=== PATIENT | male | born 1980 | race Caucasian/White ===

== ENCOUNTER 2019-01-09 04:14 | Observation (INO) ==
[2019-01-09] MEDS ORDERED: Naloxone 0.4 MG/ML INJ IVP PRN (07:18)
--- NOTE | 2019-01-09 07:36 | Internal Med History&Physical ---
Date of Encounter: 01/09/19 Time of Encounter: 07:00 Internal Medicine - H&P: HPI Chief complaint: rectal bleeding Admitted From: Hospital to Hospital Transfer Plans for Post Hospital Care: Home History of present illness: Mr. Pham is a 38 year old male with no significant past medical history presented from [facility] with symptomatic anemia. As per patient he has been having bright red blood per rectum for the past 3 weeks. Bright red blood is almost daily when he has a bowel movement and fills the entire toilet bowl. He reports some clots, has brown stools, denies black stools. He did have a colonoscopy about a month and a half ago in [facility] and reports that there was no abnormalities found. He had discussed his symptoms of having bright red blood per rectum with a physician and he was told that it was due to his hemorrhoids. Gradually over the past 3 weeks has been becoming more weak, d evelops dizziness on standing from a sitting or laying position. Has blackening of his vision when bending forward which she has never had before. He also has been becoming increasingly more tired and fatigued as compared to before while completing tasks. He denies fever, chills, hematemesis, hemoptysis, chest pain, palpitations, nausea, vomiting or diarrhea. He denies family history of GI cancers. He does take 3x 800 mg pills of ibuprofen daily. He is a current everyday smoker, denies excessive alcohol or drug use. Past Med Surg Social Fam HX - Past Medical History Medical history: non-contributory, asthma, hypertension Additional medical history: Herniated disc in neck Psychiatric history: anxiety, PTSD - Past Surgical History Surgical History: vasectomy Additional surgical history: Skin graph on left eardrum - Social History Smoking Status: Current every day smoker Packs per day: 1 Smokeless Tobacco Status: No Alcohol use: none Drug use: none - Family History Mother Living Status: Hx Family Cardiac Disorders: Yes Father Living Status: Still Living Hx Family Cardiac Disorders: Yes Internal Medicine - H&P: Meds Daypro 02/04/18 [History] Flexeril 02/04/18 [History] Sulfamethoxazole/Trimeth DS [Bactrim DS] 1 each PO BID 7 Days #14 tablet 02/04/18 [Rx] Zoloft 02/04/18 [History] Allergy/AdvReac Type Severity Reaction Status Date / Time Varenicline [From Chantix] Allergy Hives Verified 02/04/18 11:47 All Systems PM: A 10-system review of systems was performed and is negative for pertinent findings except as documented above in the HPI. - Constitutional Vitals: Temp Pulse Resp BP Pulse Ox 98.1 F 81 15 121/78 100 01/09/19 07:22 01/09/19 07:22 01/09/19 07:22 01/09/19 07:22 01/09/19 07:22 Exam: General: Patient is alert, oriented, no acute distress, obese Head: atraumatic, normocephalic, Eye: normal appearance, PERRL, pale conjunctiva ENT: mucous membranes moist, normal external ear exam Neck: normal inspection, trachea midline, full ROM Chest: normal inspection, symmetric chest rise Respiratory: Good respiratory effort. Bilateral breath sounds are clear without wheezing, crackles, or rhonchi. Cardiovascular: Regular rate and rhythm. s1 and s2 No clicks, rubs, gallops, or murmors. Abdomen: Bowel sounds present normoactive x-4 quadrants. Abdomen is soft, nondistended. no Epigastric tenderness. No guarding or rebound. No organomegaly noted, obese, mild tenderness of the right flank, Corbin sign is negative. musculoskeletal: Spontaneously moving all extremities. no edema, no calf te nderness Skin: warm, dry, intact. Neuro: Alert and oriented x4. No focal deficit Psych: Patient's affect is normal Internal Med - H&P Results - Labs CBC & Chem 7: 01/09/19 10:46 01/09/19 07:31 - EKG Data -: EKG Interpreted by Myself EKG shows normal: sinus rhythm (NSR, [id number]) - EKG Data Prior EKG available for review: no - Assessment and Plan (1) Acute blood loss anemia Current Visit: Yes Status: Acute Assessment and plan: Acute severe, symptomatic blood loss anemia secondary to GI bleed (upper vs lower) Has history of NSAID use (gastric ulcer) , does complain of bright red blood per rectum (hemorrhoidsvs angiodysplasia rule out other etiologies) CBC stat and follow every 8 hours Type and screen stat Orthostatics We will transfuse 1 unit of PRBC Guaiac test Monitor INR PPI therapy IVF Avoid non-steroidal anti-inflammatory drugs, anti-platelets, anticoagulants GI consult for EGD and colonoscopy NPO (2) BRBPR (bright red blood per rectum) Current Visit: Yes Status: Acute Assessment and plan: Questionable upper GI bleed with fast transit versus lower GI bleed versus hemorrhoids Management as above (3) Obesity (BMI 35.0-39.9 without comorbidity) Current Visit: Yes Status: Acute Assessment and plan: was counseled on nutrition (4) Smoker Current Visit: Yes Status: Acute Assessment and plan: was counseled, nicotine patch provided (5) DVT prophylaxis Current Visit: Yes Status: Acute Assessment and plan: scds - Time Spent With Patient Total time spent is greater than 50% in coordination of care (as documented) at patient's floor/unit and/or counseling patient:
[2019-01-09] MEDS ORDERED: 0.9 % Sodium Chloride 1,000 ML ONE (07:45)
[2019-01-09 07:49] LABS: Basophils % 0.2 %; Eosinophils # 0.1 K/mcL (0.0-0.6); Eosinophils % 2.7 %; Hematocrit 21.9 % (37.5-50.1); Hemoglobin 7.1 g/dL (12.9-16.9); Immature Granulocytes % 0.4 % (0-4); Lymphocytes # 1.7 K/mcL (0.6-4.6); Lymphocytes % 32.8 %; Mean Corpuscular HGB Conc 32.4 g/dL (31.6-35.5); Mean Corpuscular Volume 92.4 fL (83.0-100.0); Mean Platelet Volume 9.7 fL (9.4-12.4); Monocytes # 0.4 K/mcL (0.0-1.3); Monocytes % 7.6 %; Neutrophils # 2.9 K/mcL (1.6-8.9); Platelet Count 262 K/mcL (140-400); Red Blood Count 2.37 M/mcL (4.19-5.50); Red Cell Distribution Width 13.1 % (11.5-14.5); Segmented Neutrophils % 56.3 %
[2019-01-09] MEDS: 0.9 % Sodium Chloride 1,000 ML IVC SCH ×2 (08:00→20:55)
[2019-01-09 08:04] LABS: INR 0.9; Prothrombin Time 10.3 Seconds (9.4-12.1)
[2019-01-09 08:06] LABS: Activated Partial Thrombo Time 30.1 Seconds (26.0-36.0)
[2019-01-09 08:12] LABS: % Iron Saturation 3 % (20-55); Alanine Aminotransferase 13 Units/L (7-52); Albumin 3.6 g/dL (3.5-5.7); Albumin/Globulin Ratio 2.1 (1.1-2.2); Alkaline Phosphatase 46 Units/L (34-104); Aspartate Amino Transferase 11 Units/L (13-39); BUN/Creatinine Ratio 12 (6-26); Bilirubin,Total 0.3 mg/dL (0.3-1.0); Blood Urea Nitrogen 10 mg/dL (6-20); Calcium 8.7 mg/dL (8.6-10.3); Carbon Dioxide 28 mEq/L (23-29); Chloride 106 mEq/L (98-107); Globulin 1.7 g/dL (2.4-3.5); Glucose 101 mg/dL (70-105); Iron 11 mcg/dL (65-175); Magnesium 1.9 mg/dL (1.6-2.6); Osmolality,Calculated 287 (280-300); Phosphorous 4.2 mg/dL (2.7-4.5); Potassium 4.2 mEq/L (3.5-5.1); Sodium 139 mEq/L (136-145); Total Protein 5.3 g/dL (6.4-8.9); Transferrin 264 mg/dL (203-362); eGFR For Non-African Americans > 60 (> 60)
[2019-01-09 08:35] LABS: Folate 12.6 ng/mL (3.0-16.0)
[2019-01-09] MEDS: Nicotine 21 MG PATCH.TD24 TD SCH (10:19)
[2019-01-09] MEDS: Pantoprazole 40 MG in 0.9 % Sodium Chloride Mini Bag 100 ML IVC SCH ×3 (10:19→20:55)
[2019-01-09 11:16] LABS: Basophils % 0.4 %; Eosinophils # 0.1 K/mcL (0.0-0.6); Eosinophils % 2.4 %; Hematocrit 21.7 % (37.5-50.1); Immature Granulocytes % 0.4 % (0-4); Lymphocytes # 1.3 K/mcL (0.6-4.6); Lymphocytes % 25.5 %; Mean Corpuscular HGB Conc 32.3 g/dL (31.6-35.5); Mean Corpuscular Hemoglobin 29.5 pg (28.0-33.3); Mean Corpuscular Volume 91.6 fL (83.0-100.0); Mean Platelet Volume 9.8 fL (9.4-12.4); Monocytes # 0.4 K/mcL (0.0-1.3); Neutrophils # 3.2 K/mcL (1.6-8.9); Platelet Count 249 K/mcL (140-400); Red Blood Count 2.37 M/mcL (4.19-5.50); Red Cell Distribution Width 13.2 % (11.5-14.5); Segmented Neutrophils % 64.3 %
--- NOTE | 2019-01-09 11:37 | Gastroenterology Consult Note ---
<Aliyah Bryson - Last Filed: 01/09/19 11:30> Date of Encounter: 01/09/19 Time of Encounter: 09:45 - Assessment and plan (1) Acute blood loss anemia Current Visit: Yes Status: Acute Assessment and plan: Pt complains of BRBPR, RUQ pain, GERD, and dizziness. Will check EGD and double tomorrow to rule out esophagitis, PUD, gastritis, esophagitis, AVMs, bleeding polyps or hemorrhoids. Monitor H&H, transfuse as needed. (2) GERD (gastroesophageal reflux disease) Current Visit: Yes Status: Acute Qualifiers: Esophagitis presence: without esophagitis Qualified Code(s): K21.9 - Gastro-esophageal reflux disease without esophagitis (3) RUQ abdominal pain Current Visit: Yes Status: Acute (4) BRBPR (bright red blood per rectum) Current Visit: Yes Status: Acute - Time Spent With Patient Total time spent is greater than 50% in coordination of care (as documented) at patient's floor/unit and/or counseling patient: GI History of Present Illness - Data of Consult Patient: new to practice Consult date: 01/09/19 Requesting Physician: Oren Laureano MD - Consult Narrative Reason for consult: anemia/BRBPR History of present illness: Mr. Pham is a 38 year old male with no significant past medical history. He presented from with symptomatic anemia. He has been having bright red blood per rectum for several months but states has been much worse the past 3 weeks. Bright red blood is almost daily when he has a bowel movement and fills the entire toilet bowl. He reports some clots, has brown stools, denies black stools. He reports he would also have leakage of blood that would stain his clothes. He did have a colonoscopy 1-2 months ago at [facility] which showed a small polyp and internal hemorrhoids. Gradually over the past 3 weeks has been becoming more weak, develops dizziness on standing from a sitting or laying position. Has blackening of his vision when bending forward which she has never had before. He also has been becoming increasingly more tired and fatigued as compared to before while completing tasks. He denies fever, chills, hematemesis, hemoptysis, chest pain, palpitations, nausea, vomiting or diarrhea. He denies family history of GI cancers. He does take 3x 800 mg pills of ib uprofen daily. He complains of pain in his RUQ and "constant heartburn". He is a current everyday smoker, denies excessive alcohol or drug use. Past Med Surg Social Fam HX - Past Medical History Medical history: non-contributory, asthma, hypertension Additional medical history: Herniated disc in neck Psychiatric history: anxiety, PTSD - Past Surgical History Surgical History: vasectomy Additional surgical history: Skin graph on left eardrum - Social History Smoking Status: Current every day smoker Packs per day: 1 Smokeless Tobacco Status: No Alcohol use: none Drug use: none - Family History Mother Living Status: Hx Family Cardiac Disorders: Yes Father Living Status: Still Living Hx Family Cardiac Disorders: Yes Review of Systems: GI: as per [facility]: denies fever, has some chills EYES: denies yellow discoloration ENT: denies pain with swallowing or difficulty swallowing CARDIO: denies chest pain, palpitations RESP: Shortness of breath with exertion : denies change in color of urine NEURO: weakness HEME: Denies any bruising MS: back pain. DERM: denies rash or itching PSYCH: Denies history of anxiety or depression - Constitutional Vitals: Temp Pulse Resp BP Pulse Ox 97.8 F 82 15 125/74 98 01/09/19 10:02 01/09/19 10:02 01/09/19 10:02 01/09/19 10:02 01/09/19 10:02 Exam: CONSTITUTIONAL:alert, no acute distress.HEAD:normocephalic.EYES:no jaundice.NECK:no obvious swelling.HEART:regular rate and rhythm, no murmurs.LUNGS:bilateral good air entry.ABDOMEN:non distended, soft, tender RUQ, no masses palpable, no organomegaly.RECTAL EXAM:Deferred.EXTREMITIES:no clubbing, cyanosis or edema.SKIN: pallor noted,no stigmata of chronic liver disease.NEUROLOGIC:no obvious focal defect. Results - Labs CBC & Chem 7: 01/09/19 10:46 01/09/19 07:31 Labs: Last Result 01/09/19 01/09/19 07:31 07:38 Calcium 8.7 Iron 11 L % Saturation 3 L Transferrin 264 Vitamin B12 164 L Folate 12.6 Entire Visit 01/09/19 01/09/19 01/09/19 07:31 07:31 07:31 Hgb 7.1 L Hct 21.9 L PT 10.3 Total Bilirubin 0.3 AST 11 L ALT 13 Folate 01/09/19 01/09/19 07:38 10:46 Hgb 7.0 L Hct 21.7 L PT Total Bilirubin AST ALT Folate 12.6 - ABG ABG results: PT/INR, D-dimer PT 10.3 Seconds (9.4-12.1) 01/09/19 07:31 <Valentino Forte - Last Filed: 01/09/19 17:43> Date of Encounter: 01/09/19 Time of Encounter: 15:00 - Time Spent With Patient Total time spent is greater than 50% in coordination of care (as documented) at patient's floor/unit and/or counseling patient: GI History of Present Illness - Data of Consult Requesting Physician: Oren Laureano MD - Consult Narrative History of present illness: Mr. Pham is a 38 year old male - Constitutional Vitals: Temp Pulse Resp BP Pulse Ox 99.6 F 92 16 144/85 100 01/09/19 16:00 01/09/19 16:00 01/09/19 16:00 01/09/19 16:00 01/09/19 16:00 Results - Labs CBC & Chem 7: 01/09/19 16:58 01/09/19 07:31 Labs: Last Result 01/09/19 01/09/19 07:31 07:38 Calcium 8.7 Iron 11 L % Saturation 3 L Transferrin 264 Vitamin B12 164 L Folate 12.6 Entire Visit 01/09/19 01/09/19 01/09/19 07:31 07:31 07:31 Hgb 7.1 L Hct 21.9 L PT 10.3 Total Bilirubin 0.3 AST 11 L ALT 13 Folate 01/09/19 01/09/19 01/09/19 07:38 10:46 16:58 Hgb 7.0 L 9.1 L D Hct 21.7 L 27.4 L PT Total Bilirubin AST ALT Folate 12.6 - ABG ABG results: PT/INR, D-dimer PT 10.3 Seconds (9.4-12.1) 01/09/19 07:31 - Impressions Impressions Abdomen Ultrasound 01/09/19 11:15 IMPRESSION: Fatty liver. D/ / 01/09/2019 11:33:15 Yury Viveros MD / Kristine Maciel Interpreting Provider: Yury Viveros MD - Attending Attestation I have personally performed a face to face evaluation on this patient. I have reviewed and agree with the care plan. History and Exam by me shows: Patient seen at the bedside denies any abdominal pain does admit of taking a lot of NSAIDs per mouth. Per patient he is having rectal bleeding and it is bright red , its more in the form of blood dripping from him and per patient he has that problem for a while he had a colonoscopy done for this problem recently and apparently was told nothing was found. Examination abdomen is benign. Assessment: Patient with blood loss anemia does take a lot of and sent. Bleeding is concerning for anorectal disorder but because of his NSAID use rule out upper GI causes such as peptic ulcer disease. Recommendation: EGD colonoscopy in the morning. If Patient was found to have a anorectal disorder such as hemorrhoid then he will be banded
[2019-01-09] MEDS ORDERED: 0.9 % Sodium Chloride 250 ML ONE (13:10)
[2019-01-09] MEDS ORDERED: SODIUM CHLORIDE/NAHCO3/KCL/PEG 4,000 ML SOLN.RECON PO ONE (17:00)
[2019-01-09 17:10] LABS: Hematocrit 27.4 % (37.5-50.1); Hemoglobin 9.1 g/dL (12.9-16.9)
[2019-01-09 21:02] LABS: Hematocrit 25.3 % (37.5-50.1); Hemoglobin 8.4 g/dL (12.9-16.9)
--- NOTE | 2019-01-09 23:40 | Anesthesia Evaluation PreOp ---
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: Other (herniated cervical disc, anxiety ptsd) Anesthesia History: No Prior Anesthetic Complications, Past Anesthesia (vasectomy, L ear drum) Alcohol Use: none Drug use: none Medications and Allergies Albuterol Sulfate [Albuterol Inhaler] 2 puff IH Q4H PRN 01/09/19 [History] Buspirone HCl [Buspar] 5 mg PO BID 01/09/19 [History] Cetirizine HCl [Zyrtec] 10 mg PO DAILY 01/09/19 [History] Cyclobenzaprine [Flexeril] 10 mg PO TID PRN 01/09/19 [History] Fluticasone Propionate Nasal [Flonase] 2 spray NS DAILY 01/09/19 [History] Ibuprofen 800 mg PO TID PRN 01/09/19 [History] Allergy/AdvReac Type Severity Reaction Status Date / Time Varenicline [From Chantix] Allergy Hives Verified 02/04/18 11:47 - Meds/Allergy Pre-op Review Medications Reviewed: Yes Allergies Reviewed: Yes Beta Blockers on Current Med List: No Anesthesia Results - Labs 01/09/19 20:54 01/09/19 07:31 Anesthesia Exam Vital Signs/O2 Sat, Most Current Temp Pulse Resp BP Pulse Ox 97.7 F 98 16 134/76 100 01/09/19 19:54 01/09/19 19:54 01/09/19 19:54 01/09/19 19:54 01/09/19 19:54 Weight: 123kg - HEENT Pupil (Motor): Pupils equal Anesthesia Assess/Plan ASA Score: 2 Level of consciousness: Cooperative Anesthetic Plan: General, MAC Monitoring Plan: Standard Monitors Recovery Plan: PACU <Christopher Cancino - Last Filed: 01/10/19 07:56> Date of Encounter: 01/10/19 Anesthesia Results - Labs 01/10/19 05:58 01/10/19 01:53 Anesthesia Exam Vital Signs/O2 Sat, Most Current Temp Pulse Resp BP Pulse Ox 98.7 F 96 18 135/76 98 01/10/19 07:44 01/10/19 07:44 01/10/19 07:44 01/10/19 07:44 01/10/19 07:44 - HEENT Mallampati: I Teeth: Edentulous - Cardiac Rhythm: Regular - Pulmonary Breath Sounds: bilateral Clear Respiratory Effort: Symmetrical Anesthesia Assess/Plan ASA Score: 3 Recovery Plan: Other Anes Supervising Prov Stmt: HB 7.0 5/2 POST 1 UNIT PRBC 5/3 PM, WITH GRADUAL DROP OF HB TO 7.0 THIS AM. X-MATCH FOR ADDITIONAL 2 UNITS PRBC
[2019-01-10] MEDS ORDERED: Ondansetron 4 MG/2 ML VIAL IVP PRN (00:07)
[2019-01-10] MEDS: Pantoprazole 40 MG in 0.9 % Sodium Chloride Mini Bag 100 ML IVC SCH (02:20)
[2019-01-10 02:36] LABS: Hematocrit 22.7 % (37.5-50.1); Hemoglobin 7.6 g/dL (12.9-16.9); Mean Corpuscular HGB Conc 33.5 g/dL (31.6-35.5); Mean Corpuscular Hemoglobin 30.2 pg (28.0-33.3); Mean Corpuscular Volume 90.1 fL (83.0-100.0); Mean Platelet Volume 9.9 fL (9.4-12.4); Platelet Count 256 K/mcL (140-400); Red Blood Count 2.52 M/mcL (4.19-5.50); Red Cell Distribution Width 13.1 % (11.5-14.5)
[2019-01-10 02:56] LABS: BUN/Creatinine Ratio 8 (6-26); Blood Urea Nitrogen 6 mg/dL (6-20); Calcium 8.2 mg/dL (8.6-10.3); Carbon Dioxide 26 mEq/L (23-29); Chloride 111 mEq/L (98-107); Glucose 102 mg/dL (70-105); Osmolality,Calculated 286 (280-300); Potassium 4.1 mEq/L (3.5-5.1); Sodium 139 mEq/L (136-145); eGFR For Non-African Americans > 60 (> 60)
[2019-01-10 06:10] LABS: Basophils % 0.2 %; Eosinophils # 0.1 K/mcL (0.0-0.6); Eosinophils % 2.1 %; Hematocrit 21.3 % (37.5-50.1); Immature Granulocytes % 0.2 % (0-4); Lymphocytes # 1.6 K/mcL (0.6-4.6); Mean Corpuscular HGB Conc 32.9 g/dL (31.6-35.5); Mean Corpuscular Hemoglobin 29.7 pg (28.0-33.3); Mean Corpuscular Volume 90.3 fL (83.0-100.0); Mean Platelet Volume 9.8 fL (9.4-12.4); Monocytes # 0.3 K/mcL (0.0-1.3); Monocytes % 6.9 %; Neutrophils # 2.7 K/mcL (1.6-8.9); Platelet Count 244 K/mcL (140-400); Red Blood Count 2.36 M/mcL (4.19-5.50); Red Cell Distribution Width 13.1 % (11.5-14.5); Segmented Neutrophils % 56.6 %
[2019-01-10] MEDS ORDERED: Propofol 500 MG/50 ML INFUS..BTL ONE (06:22)
[2019-01-10] MEDS ORDERED: *HR* FentaNYL (PF) 100 MCG/2 ML VIAL ONE (07:08)
--- NOTE | 2019-01-10 09:04 | Internal Med Progress Note ---
Hospitalist Progress Note - Encounter Date of Encounter: 01/10/19 Time of Encounter: 09:02 - Subjective Interval History: Patient was seen and examined. Continues to have bloody bowel movements with bright red blood per rectum. Had an EGD and a colonoscopy yesterday with a colonoscopy showing internal hemorrhoids with 3 of a band. He is uncomfortable in the rectal area. Was given 1 unit of blood upon admission his hemoglobin is still down to 7.0 - Exam Vitals: Temp Pulse Resp BP Pulse Ox 98.7 F 96 18 135/76 98 01/10/19 07:44 01/10/19 07:44 01/10/19 07:44 01/10/19 07:44 01/10/19 07:44 Exam: GEN: NAD CVS: RRR. S1, S2, No m/r/g RESP: CTAB ABD: Soft, NT, ND, +BS EXT: No edema. 2+ DP. No rashes NEURO: Nonfocal - Assessment and Plan (1) Acute blood loss anemia Current Visit: Yes Status: Acute Assessment and Plan: Due to internal hemorrhoids bleed. We will give another unit PRBCs today. He still having bloody bowel movements which is possibly old blood. Check hemoglobin again tomorrow. (2) BRBPR (bright red blood per rectum) Current Visit: Yes Status: Acute Assessment and Plan: Due to internal hemorrhoids bleed. We will give another unit PRBCs today. He still having bloody bowel movements which is possibly old blood. Check hemoglobin again tomorrow. Stop IV PPI. Switch to oral PPI. Has some gastritis and duodenitis on the EGD. Stop 26 hours H&H. We will just do daily. We will check posttransfusion H&H. (3) Obesity (BMI 35.0-39.9 without comorbidity) Current Visit: Yes Status: Acute Assessment and Plan: Counseled (4) DVT prophylaxis Current Visit: Yes Status: Acute Assessment and Plan: SCDs (5) Smoker Current Visit: Yes Status: Acute - Time Spent with Patient Total time spent is greater than 50% in coordination of care (as documented) at patient's floor/unit and/or counseling patient: Internal Medicine: Result - Labs CBC & Chem 7: 01/10/19 05:58 01/10/19 01:53 Labs: Short CBC 01/09/19 01/09/19 01/09/19 Range/Units 10:46 16:58 20:54 WBC 5.0 (4.3-11.1) K/mcL Hgb 7.0 L 9.1 L D 8.4 L (12.9-16.9) g/dL Hct 21.7 L 27.4 L 25.3 L (37.5-50.1) % Plt Count 249 (140-400) K/mcL Neutrophils # 3.2 (1.6-8.9) K/mcL 01/10/19 01/10/19 Range/Units 01:53 05:58 WBC 6.0 4.8 (4.3-11.1) K/mcL Hgb 7.6 L 7.0 L (12.9-16.9) g/dL Hct 22.7 L 21.3 L (37.5-50.1) % Plt Count 256 244 (140-400) K/mcL Neutrophils # 2.7 (1.6-8.9) K/mcL BMP 01/10/19 01:53 Sodium 139 Potassium 4.1 Chloride 111 H Carbon Dioxide 26 BUN 6 Creatinine 0.80 Glucose 102 Calcium 8.2 L - ABG Interpretation ABG results: PT/INR, D-dimer PT 10.3 Seconds (9.4-12.1) 01/09/19 07:31 - Impressions Impressions Abdomen Ultrasound 01/09/19 11:15 IMPRESSION: Fatty liver. D/ / 01/09/2019 11:33:15 Yury Viveros MD / Kristine Maciel Interpreting Provider: Yury Viveros MD Consult Discharge Plan - Plan Referrals: NONE,PCP [Primary Care Provider] -
[2019-01-10] MEDS ORDERED: 0.9 % Sodium Chloride Mini Bag 100 ML ONE (09:17)
[2019-01-10] MEDS: traMADol 50 MG TABLET PO PRN ×3 (09:20→20:21)
[2019-01-10] MEDS: Loratadine 10 MG TABLET PO SCH (09:20)
[2019-01-10] MEDS: Nicotine 21 MG PATCH.TD24 TD SCH (09:21)
[2019-01-10] MEDS: Fluticasone Propionate Nasal 50 MCG/SPRAY BOTTLE NS SCH (09:22)
[2019-01-10] MEDS: Lidocaine OINT 35.44 GM TUBE TP PRN ×2 (10:20→20:35)
[2019-01-10] MEDS: 0.9 % Sodium Chloride 1,000 ML IVC SCH (12:28)
[2019-01-10 13:11] LABS: Hematocrit 25.2 % (37.5-50.1); Hemoglobin 8.4 g/dL (12.9-16.9)
[2019-01-10] MEDS ORDERED: Simethicone 80 MG TAB.CHEW PO PRN (18:09)
[2019-01-11 07:55] LABS: Basophils % 0.4 %; Eosinophils # 0.1 K/mcL (0.0-0.6); Eosinophils % 1.7 %; Hematocrit 24.8 % (37.5-50.1); Hemoglobin 7.9 g/dL (12.9-16.9); Immature Granulocytes % 0.4 % (0-4); Lymphocytes # 1.7 K/mcL (0.6-4.6); Lymphocytes % 31.6 %; Mean Corpuscular HGB Conc 31.9 g/dL (31.6-35.5); Mean Corpuscular Hemoglobin 29.8 pg (28.0-33.3); Mean Corpuscular Volume 93.6 fL (83.0-100.0); Mean Platelet Volume 10.1 fL (9.4-12.4); Monocytes # 0.4 K/mcL (0.0-1.3); Monocytes % 7.9 %; Neutrophils # 3.1 K/mcL (1.6-8.9); Platelet Count 222 K/mcL (140-400); Red Blood Count 2.65 M/mcL (4.19-5.50); Red Cell Distribution Width 13.2 % (11.5-14.5)
[2019-01-11] MEDS: Loratadine 10 MG TABLET PO SCH (09:20)
[2019-01-11] MEDS: Fluticasone Propionate Nasal 50 MCG/SPRAY BOTTLE NS SCH (09:24)
[2019-01-11 10:18] VITALS: BP 144/86
--- NOTE | 2019-01-11 10:42 | Discharge Summary ---
Orders not resulted at time of discharge: Pending orders 01/09/19 07:31 Red Blood Cells [BBK] Stat Type and Screen [BBK] Stat 01/10/19 08:09 Surgical Pathology [PTH] Routine 01/11/19 13:00 Hemoglobin and Hematocrit [HEME] Timed Date of Encounter: 01/11/19 Time of Encounter: 10:40 - Discharge Diagnosis (1) Acute blood loss anemia Priority: Primary Status: Acute (2) BRBPR (bright red blood per rectum) Priority: Primary Status: Acute (3) Obesity (BMI 35.0-39.9 without comorbidity) Priority: Secondary Status: Acute (4) Smoker Priority: Secondary Status: Acute Hospital course: Mr. Pham is a 38 year old male with no significant past medical history presented from [facility] with symptomatic anemia. As per patient he has been having bright red blood per rectum for the past 3 weeks. Bright red blood is almost daily when he has a bowel movement and fills the entire toilet bowl. He reports some clots, has brown stools, denies black stools. He did have a colonoscopy about a month and a half ago in [place] and reports that there was no abnormalities found. He had discussed his symptoms of having bright red blood per rectum with a physician and he was told that it was due to his hemorrhoids. Gradually over the past 3 weeks has been becoming more weak, develops dizziness on standing from a sitting or laying position. Hgb was 7.1 upon presentation but was stable. Was transfused a total of 2 units PRBCs while here. He was seen by GI and had 3 internal hemorrhoids banded by GI through a colonoscopy. Had an EGD as well that showed gastritis and duodenitis. He was told to stop taking NSAIDs. He was put on oral PPI. BRBPR was resolving and he was discharged on 01/11/2019. His hgb on day of discharge was 9.5. - Time Spent with Patient Total time spent providing and/or coordinating discharge services: Time spent: Greater than 30 minutes - Discharge Medications Prescriptions: New Simethicone [Gas-X] 80 mg PO TID PRN 30 Days #90 tab.chew PRN Reason: Dyspepsia Lidocaine OINT 1 appl TP TID PRN 90 Days #3 tube PRN Reason: Pain Omeprazole [PriLOSEC] 40 mg PO DAILY@0630 30 Days #30 capsule. Docusate [Colace] 100 mg PO BID 30 Days #60 capsule Polyethylene Glycol 3350 [MiraLAX] 17 gm PO BID 30 Days #60 powd.pack Continued Cetirizine HCl [Zyrtec] 10 mg PO DAILY Albuterol Sulfate [Albuterol Inhaler] 2 puff IH Q4H PRN PRN Reason: Shortness Of Breath Buspirone HCl [Buspar] 5 mg PO BID Cyclobenzaprine [Flexeril] 10 mg PO TID PRN PRN Reason: Muscle Spasm Fluticasone Propionate Nasal [Flonase] 2 spray NS DAILY Discontinued Ibuprofen 800 mg PO TID PRN PRN Reason: Pain Home Medications: Albuterol Sulfate [Albuterol Inhaler] 2 puff IH Q4H PRN 01/09/19 [History] Buspirone HCl [Buspar] 5 mg PO BID 01/09/19 [History] Cetirizine HCl [Zyrtec] 10 mg PO DAILY 01/09/19 [History] Cyclobenzaprine [Flexeril] 10 mg PO TID PRN 01/09/19 [History] Fluticasone Propionate Nasal [Flonase] 2 spray NS DAILY 01/09/19 [History] Docusate [Colace] 100 mg PO BID 30 Days #60 capsule 01/11/19 [Rx] Lidocaine OINT 1 appl TP TID PRN 90 Days #3 tube 01/11/19 [Rx] Omeprazole [PriLOSEC] 40 mg PO DAILY@0630 30 Days #30 capsule. 01/11/19 [Rx] Polyethylene Glycol 3350 [MiraLAX] 17 gm PO BID 30 Days #60 powd.pack 01/11/19 [Rx] Simethicone [Gas-X] 80 mg PO TID PRN 30 Days #90 tab.chew 01/11/19 [Rx] Allergies/Adverse Reactions: Allergy/AdvReac Type Severity Reaction Status Date / Time Varenicline [From Chantix] Allergy Hives Verified 02/04/18 11:47 Date of admission: 01/09/19 06:26 Primary care physician: PCP NONE Consults: 01/09/19 07:24 Consult to Gastroenterology [CONS] Routine Consulting Provider: Gastroenterology Han[facility] Reason for Consult: GI bleed Call Completed: No - Constitutional Vitals: Temp Pulse Resp BP Pulse Ox 98.0 F 92 15 144/86 100 01/11/19 10:17 01/11/19 10:17 01/11/19 10:17 01/11/19 10:17 01/11/19 10:17 Exam: GEN: NAD CVS: RRR. S1, S2, No m/r/g RESP: CTAB ABD: Soft, NT, ND, +BS EXT: No edema. 2+ DP. No rashes NEURO: Nonfocal - Patient Status Disposition: Home, Self-Care Condition: Fair Overall status at discharge: patient is progressing back to baseline - Discharge Instructions Instructions: Rectal Bleeding (DC), Anemia (DC) Follow Up With: NONE,PCP [Primary Care Provider] - Valentino Forte MD [Partnered Physician] - (2 week) - Diet and Activity Activity: increase activity as tolerated Diet: regular diet
[2019-01-11 13:40] LABS: Hematocrit 29.4 % (37.5-50.1)
[2019-01-11 13:41] LABS: Hemoglobin 9.5 g/dL (12.9-16.9)
== END 2019-01-11 14:32 | disposition home or self-care (01) ==
LOC: 3ANU → SUATTDRO 06:26
PROVIDERS: ADMIT Family Medicine; ATTEND Internal Medicine
PROC: [UNRECOGNIZED PROCEDURE] (2019-01-10 08:00)
PROC: ENDOEBX (2019-01-10 08:00)